=== PATIENT | male | born 2000 | race African-American/Black ===

== ENCOUNTER 2022-04-29 14:12 | Emergency (ER) | payer BC, OTHER ==
--- OUTSIDE RECORDS SUMMARY | 2022-04-29 14:15 | XMS REPORT | Continuity of Care Document ---
:2000 Author Organization [facility] Address [address] [place] [address] Care Team Providers Name Role Phone KRISTA QUINONES Primary Care Physician Unavailable ANTOINETTE CORTES Attending Clinician Unavailable Antoinette Cortes DO Attending Clinician CHIN EARL Attending Clinician Unavailable Chin Earl MD Attending Clinician EDELMIRA Attending Clinician Unavailable Maritza Howard RN Attending Clinician Unavailable Only, Ang Db Test Attending Clinician Unavailable Re Anderson Attending Clinician Zan FERNANDEZ, Davonte Attending Clinician DAVONTE ZULUAGA Attending Clinician Unavailable Doctor Unassigned, [place] Attending Clinician Unavailable RE ROMERO Attending Clinician Unavailable Ebrahim NIGHT PATROL INSPECTOR Rangopal Attending Clinician EBOSKAR RANIA Attending Clinician Unavailable Sven NIGHT PATROL INSPECTOR Starla Attending Clinician STARLA MACHUCA Attending Clinician Unavailable Therapy, Adc Covid Infusion Attending Clinician Unavailable Edenilson López MD Attending Clinician EDENILSON LÓPEZ Attending Clinician Unavailable Brooke Bernstein RN Attending Clinician Unavailable Krista Quinones DO Attending Clinician Celestino Rodriguez MD Attending Clinician Rajiv Phillips MD Attending Clinician RAJIV PHILLIPS Attending Clinician Unavailable EDELMIRA Admitting Clinician Unavailable Payers Payer Name Policy Type Policy Number Effective Date Expiration Date Rosa WALL [id number] 2020 HEALTH 00:00:00 [facility] [id number] 2021 00:00:00 Problems Condition Condition Condition Status Onset Resolution Last Treating Co mments Source Name Details Category Date Date Treatment Clinician Date Hand pain, Hand pain, Disease Active 2014-03 U nivers right right 04-07 ity of 00:00: [place] 00 [facility] Allergies, Adverse Reactions, Alerts Allergy Allergy Status Severity Reaction(s) Onset Inactive Treating Comm ents Source Name Type Date Date Clinician NO KNOWN Drug Active Univers ALLERGIE Class ity of S [facility] Social History Social Habit Start Date Stop Date Quantity Comments Source Exposure to 2022-04-11 2022-04-21 Not sure [facility] SARS-CoV-2 (event) 00:00:00 13:15:00 Medica l Branch Alcohol intake 2022-04-21 2022-04-21 0 /d [facility] 00:00:00 00:00:00 [facility] Sex Assigned At [birth year] [facility] 00:00:00 00:00:00 [facility] Smoking Status Start Date Stop Date Source Never smoked tobacco [facility] Medications Ordered Filled Start Stop Current Ordering Indication Dosage Frequency Signature Comments Components Source Medication Medication Date Date Medication? Clinician (SIG) Name Name NaCl 0.9% 2022- No 1000mL at 999 Uni vers (NS) bolus 04-21 mL/hr, ity of infusion 22:15: 22:55 1,000 mL, Kyle as 1,000 mL 00 :00 IV Medical Infusion, Branch ONCE, 1 dose, On 04/21/22 at 1615, MAXINE ondansetron 2022- No 4mg 4 mg, Slow Univers (ZOFRAN 04-21 IV Push, ity of (PF)) 21:30: 22:10 ONCE, 1 [place] injection 4 00 :00 dose, On Medi martina mg Mon Branch 04/21/22 at 1530, MAXINE NaCl 0.9% 2022- No 1000mL at 999 Uni vers (NS) bolus 1-30 01-30 mL/hr, ity of infusion 20:30: 20:28 1,000 mL, Kyle as 1,000 mL 00 :00 IV Medical Infusion, Branch ONCE, 1 dose, On 04/21/22 at 1430, MAXINE ondansetron 2022-0 Yes [id number] 4mg Take 1 U nivers 4 mg 1-30 tablet by ity of disintegrat 00:00: mouth [place] ing tablet 00 every 8 Medica l (eight) Branch hours as needed for Nausea and Vomiting (N/V). famotidine 0 Yes [id number] 20mg Take 1 U nivers 20 mg 6-14 tablet by ity of tablet 00:00: mouth 2 [place] 00 (two) Medical times Branch daily. sucralfate 0 Yes [id number] 1g Take 1 U nivers 1 gram 6-14 tablet by ity of tablet 00:00: mouth [place] 00 before Medical meals and Branch at bedtime. docusate 0 Yes [id number] 250mg Take 1 Un castro sodium 250 6-14 capsule by ity of mg capsule 00:00: mouth once [place] 00 daily as Medical needed for Branch Constipati on. ondansetron 0 Yes [id number] 4mg Take 1 Univers 4 mg 6-14 tablet by ity of disintegrat 00:00: mouth [place] ing tablet 00 every 4 Medica l (four) Branch hours as needed for Nausea and Vomiting (N/V). famotidine 2020-0 Yes [id number] 20mg Take 1 U nivers 20 mg 6-14 tablet by ity of tablet 00:00: mouth 2 [place] 00 (two) Medical times Branch daily. sucralfate 2020-0 Yes [id number] 1g Take 1 U nivers 1 gram 6-14 tablet by ity of tablet 00:00: mouth [place] 00 before Medical meals and Branch at bedtime. docusate 2020-0 Yes [id number] 250mg Take 1 Un castro sodium 250 6-14 capsule by ity of mg capsule 00:00: mouth once [place] 00 daily as Medical needed for Branch Constipati on. ondansetron 2020-0 2022- No [id number] 4mg Take 1 Univers 4 mg 6-14 01-30 tablet by ity of disintegrat 00:00: 00:[place] tablet 00 :00 every 4 Medica l (four) Branch hours as needed for Nausea and Vomiting (N/V). ondansetron Yes 4mg Take 4 mg U nivers 4 mg tablet 2-11 by mouth. ity of 00:00: [place] [facility] ondansetron Yes 4mg Take 4 mg U nivers 4 mg tablet 2-11 by mouth. ity of 00:00: [place] [facility] amitriptyli Yes [id number] 10mg Take 1 Univers ne 10 mg 1-29 tablet by ity of tablet 00:00: mouth [place] 00 every Medical evening. Branch amitriptyli Yes [id number] 10mg Take 1 Univers ne 10 mg 1-29 tablet by ity of tablet 00:00: mouth [place] 00 every Medical evening. Branch Vital Signs Vital Name Observation Time Observation Value Comments Source Systolic blood 2022-04-21 22:30:00 138 mm[Hg] Univer sity [facility] Diastolic blood 2022-04-21 22:30:00 84 [facility]Hg[facility] 2022-04-21 22:30:00 102 /min [facility] Body temperature 2022-04-21 22:30:00 36.67 Bel [facility] Respiratory rate 2022-04-21 22:30:00 16 /min [facility] Oxygen saturation in 2022-04-21 22:30:00 100 /min [facility] Arterial blood by [facility] [place] [facility] Pulse oximetry Branch Body weight 2022-04-21 19:25:00 108.863 kg [facility] Systolic blood 2021-11-13 15:20:00 125 mm[Hg] Univer sity [facility] Diastolic blood 2021-11-13 15:20:00 84 mm[Hg] Unive rsity [facility] Heart rate 2021-11-13 15:20:00 89 /min [facility] Body height 2021-11-13 15:20:00 195.6 cm [facility] Body weight 2021-11-13 15:20:00 119.704 kg [facility] BMI 2021-11-13 15:20:00 31.29 kg/m2 [facility] Procedures Procedure Date / Time Performing Clinician Source Performed MAGNESIUM 2022-04-21 19:40:00 Antoinette Cortes [facility] TROPONIN I 2022-04-21 19:40:00 Antoinette Cortes [facility] THYROID STIMULATING 2022-04-21 19:40:00 Antoinette Cortes [facility] HORMONE [facility] COMP. METABOLIC PANEL 2022-04-21 19:40:00 Antoinette Cortes [facility] ([id number]) [facility] CBC WITH DIFF 2022-04-21 19:40:00 Antoinette Cortes [facility] URINALYSIS 2022-04-21 19:40:00 Antoinette Cortes [facility] URINE DRUG (IMMUNOASSAY) 2022-04-21 19:40:00 Antoinette Cortes [facility] DRUG Medical [facility] SCREEN W/O REFLEX CONSENT/REFUSAL FOR 2022-04-21 18:52:21 Doctor Unassigned, No Un [facility] DIAGNOSIS AND TREATMENT Name Medical [place] Encounters Start End Encounter Admission Attending Care Care Encounter Source Date/Time Date/Time Type Type Clinicians Facility Department ID 2021-01-21 Emergency [facility] [id number] Univers [facility] 2022-04-21 2022-04-21 Emergency X SEBASTIAN [facility] ERT [id number] Univers 13:25:00 17:09:[address] [facility] 2022-04-21 2022-04-21 [facility] 1.2.840.114 [id number] Univers 13:25:00 17:09:00 Antoinette KOWALSKI [id number] itmary beth [facility] 4.2.7.2.686 [facility] [phone] [facility] 084 Branch 2021-11-26 2021-11-26 Outpatient R RAJAT [facility] [id number] Univers 13:00:00 13:00:00 CHIN bradford o f [facility] 2021-11-13 2021-11-13 Outpatient R RAJAT, [facility] [id number] Univers 10:20:00 10:46:15 CHIN khan [facility] 2021-11-13 2021-11-13 Outpatient R RAJAT, [facility] [id number] Univers 10:20:00 10:46:15 CHIN burgos [facility] 2021-11-13 2021-11-13 Office [facility] 1.2.840.114 [id number] Univers 10:20:00 10:46:15 Visit Chin KOWALSKI [id number] ity [facility] [id number] [place] [id number] Ok mojgannj BOB 059 [facility] 2021-10-04 2021-10-04 Outpatient HAYDERHEMANT RIVERA [facility] 935 [place] 03:23:00 03:23:00 HN 0715 da [facility] Outre h Program 2021-09-29 2021-09-29 Telephone Maritza Howard 1.2.840.114 [id number] Univers 00:00:00 00:00:00 GOODELLS [id number] it y [facility] 4.2.7.2.686 [place] as [phone] [address] 2021-09-28 2021-09-28 Laboratory Only, Ang Db Test [facility] 1.2.8 40.114 [id number] Univers 12:00:00 12:15:00 Only [place] [id number] ity of Davonte Zuluaga 4.2.7.2.686 [place] ARNEL?BLEA [phone] Ok dicmarvin KNEY [address] [place] MEDICAL OFFICE BUILDING 2021-09-28 2021-09-28 Outpatient R ZAN [facility] [id number] Univers 12:00:00 12:00:[address] [facility] 2021-09-27 2021-09-27 Outpatient R [facility] [id number] Univers 10:00:00 10:00:[address] [facility] 2021-08-30 2021-08-30 Outpatient R RAJAT, [facility] [id number] Univers 09:00:00 09:00:00 CHIN ity o f [facility] 2021-08-13 2021-08-13 Orders Doctor CAIO 1.2.840.114 [id number] Univers 00:00:00 00:00:00 Only Unassigned, SEFERINO [id number] ity of [facility] 4.2.7.2.686 [place] as [phone] [address] 2021-02-07 2021-02-07 Laboratory Only, Ang Db Test [facility] 1.2.8 40.114 [id number] Univers 09:20:37 09:35:37 Only Nick, Re HEALTH [id number] ity of [place] 4.2.7.2.686 [place] as ARNEL?BLEA [phone] [address] MEDICAL OFFICE [facility] 2021-02-07 2021-02-07 Outpatient R NICK [facility] [id number] Univers 09:15:00 09:15:[address] [facility] 2021-02-07 2021-02-07 Orders Doctor CAIO 1.2.840.114 [id number] Univers 00:00:00 00:00:00 Only Unassigned, SEFERINO [id number] ity of [facility] 4.2.7.2.686 Kyle as [phone] [address] 2021-01-11 2021-01-11 Laboratory Only, Ang Db Test [facility] 1.2.8 40.114 [id number] Univers 09:57:56 10:12:56 Only [facility] [id number] ity of [place] 4.2.7.2.686 [place] as Arnel?Blea [phone] [address] Medical Office [facility] 2021-01-11 2021-01-11 Outpatient R AMADOU [facility] [id number] Univers 10:00:00 10:00:[address] [facility] 2020-12-24 2020-12-24 Laboratory Only, Ang Db Test [facility] 1.2.8 40.114 [id number] Univers 13:01:44 13:16:44 Only Starla Machuca [id number] ity of [place] 4.2.7.2.686 Kyle as Arnel?Blea [phone] Ok david tate [address] [place] [address] Medical Office Building 2020-12-24 2020-12-24 Outpatient R SVEN [facility] [id number] Univers 13:15:00 13:15:00 STARLA ity o f [facility] 2020-11-22 2020-11-22 Nurse Therapy, Adc Covid Infusion [facility] 1.2.840.114 [id number] Univers 15:01:43 16:01:43 Visit Edenilson López 350.1.13.10 ity of [place] 4[place]7.2.[place] [id number] [place] [id number] [place] 2020-11-22 2020-11-22 Outpatient Sherrie LÓPEZ [facility] [id number] Univers 16:00:00 16:00:[address] [facility] 2020-11-22 2020-11-22 Orders Doctor CAIO 1.2.840.114 [id number] Univers 00:00:00 00:00:00 Only Unassigned, SEFERINO 350.1.13.10 ity of [facility] 4.2.7.2.686 Kyle as [phone] [facility] [address] [place] 2020-11-14 2020-11-14 Letter CAIO Bernstein 1.2.840.114 [id number] Univers 00:00:00 00:00:00 (Out) Brooke GENTILE 350.1.13.10 it y of HOSPITAL 4.2.7.2.686 [place] as [phone] [facility] [address] [place] 2020-11-14 2020-11-14 Telephone CAIO Quinones 1.2.840.114 [id number] Univers 00:00:00 00:00:00 Krista GENTILE 350.1.13.10 it y of HOSPITAL 4.2.7.2.686 [place] as [id number] [facility] [address] [place] 2020-11-13 2020-11-13 Laboratory Only, Ang Db Test [facility] 1.2.8 40.114 [id number] Univers 10:15:00 10:25:00 Only Davonte Zuluaga [facility] [id number] ity of [place] 4.2.7.2.686 Kyle as Arnel?Blea [phone] [address] Medical Office [facility] 2020-11-13 2020-11-13 Outpatient R [facility] [id number] Univers 10:20:00 10:20:00 ity of [facility] 2020-11-13 2020-11-13 Urgent Davonte Zuluaga [facility] 1.2.840.114 [id number] Univers 10:00:00 10:20:00 Care [facility] 350.1.13.10 ity of [place] 4.2.7.2.686 [place] as Arnel?Blea [phone] [address] Medical Office [facility] 2020-11-13 2020-11-13 Outpatient R [facility] [id number] Univers 10:00:00 10:00:00 ity of [facility] 2020-09-03 2020-09-03 Emergency [facility] [id number] Univers 08:57:00 11:08:00 Celestino [place] 350.1.13.10 i [place].7.2.686 [place] [id number] [address] 2020-04-13 2020-04-13 Orders Doctor KEARNEY 1.2.840.114 [id number] Univers 00:00:00 00:00:00 Only Unassigned, SEFERINO 350.1.13.10 ity of [facility] 4.2.7.2.686 Kyle as [id number] [address] 2020-03-22 2020-03-22 Orders Doctor KEARNEY 1.2.840.114 [id number] Univers 00:00:00 00:00:00 Only Unassigned, SEFERINO 350.1.13.10 ity of [facility] 4.2.7.2.686 Kyle as [id number] [address] 2020-03-07 2020-03-07 Orders Doctor KEARNEY 1.2.840.114 [id number] Univers 00:00:00 00:00:00 Only Unassigned, SEFERINO 350.1.13.10 ity of [facility] 4.2.7.2.686 Kyle as [phone] [address] 2020-02-13 2020-02-13 Orders Doctor CAIO 1.2.840.114 [id number] Univers 00:00:00 00:00:00 Only Unassigned, SEFERINO 350.1.13.10 ity of [facility] 4.2.7.2.686 Kyle as [phone] [address] 2020-02-03 2020-02-03 Office Alan [facility] [id number] [facility] 09:30:05 09:45:05 Visit Rajiv [facility] 350.1.13.10 it y of Surgical 4.2.7.2.686 Kyle as Specialti [phone] Ok david [address] [facility] 2020-02-03 2020-02-03 Outpatient R ALAN [facility] [id number] [facility] 09:30:00 09:30:00 RAJIV bradford of [facility] Results This patient has no known results.
[2022-04-29 15:13] LABS: Absolute Lymphocytes (CBC) 1.9 K/uL (0.7-4.9); Hematocrit 41.8 % (39.6-49.0); Lymphocytes % 21.8 % (15.3-44.8); MCV 85.2 fL (80-100); MPV 8.8 fL (7.6-11.3)
[2022-04-29 15:13] LABS: Urine Blood Negative (Negative); Urine Glucose Negative (Negative); Urine Protein 1+ (Negative)
--- NOTE | 2022-04-29 15:20 | RAD REPORT ---
EXAM DESCRIPTION: CTAbdomen Pelvis W Contrast - 04/29/2022 3:11 pm CLINICAL HISTORY: Abdominal pain. abdominal pain, diarrhea COMPARISON: No comparisons TECHNIQUE: Biphasic CT imaging of the abdomen and pelvis was performed with 100 ml non-ionic IV cont rast. All CT scans are performed using dose optimization technique as appropriate and may include automated exposure control or mA/KV adjustment according to patient size. FINDINGS: The lung bases are clear. The liver, spleen, pancreas, adrenal glands and kidneys are within normal limits. No bowel obstruction, free air, free fluid or abscess. The appendix is normal. No evidence of signi ficant lymphadenopathy. No suspicious bony findings. IMPRESSION: No acute intra-abdominal or pelvic finding.
--- NOTE | 2022-04-29 15:24 | RAD REPORT ---
EXAM DESCRIPTION: CT - Chest For Pe Angio - 04/29/2022 3:11 pm CLINICAL HISTORY: Chest pain. CHEST PAIN COMPARISON: No comparisons TECHNIQUE: CT angiogram of the pulmonary arteries was performed with MIP. All CT scans are performed using dose optimization technique as appropriate and may include automated exposure control or mA/KV adjustment according to patient size. FINDINGS: No evidence of pulmonary thromboembolism. No acute aortic finding demonstrated. The lungs are clear. No significant pericardial or pleural fluid. No concerning bony finding. IMPRESSION: No evidence of pulmonary thromboembolism. No acute lung findings.
[2022-04-29 15:32] LABS: Albumin 4.4 g/dL (3.4-5.0); Bilirubin Total 0.8 mg/dL (0.2-1.0); Potassium 3.3 mmol/L (3.5-5.1); Protein, Total 8.2 g/dL (6.4-8.2)
[2022-04-29] MEDS ORDERED: ONDANSETRON 4 MG/2 ML VIAL ONE (15:45)
[2022-04-29] MEDS ORDERED: Ringers Lactate 1,000 ML IV ONE (15:45)
[2022-04-29] MEDS ORDERED: HALOPERIDOL LACT 5 MG/ML INJ ONE (17:46)
--- NOTE | 2022-04-29 18:01 | ER ---
Nurse's Notes [facility] Name: Lokesh Conklin Age: 21 yrs Sex: Male : 2000 Arrival Date: 04/29/2022 Time: 14:18 Bed 25 Private MD: Lloyd Her Diagnosis: Abdominal pain, unspecified;Vomiting Presentation: 04/29 14:37 Chief complaint: Patient states: ABD pain X 8 days, lack of appetite, mucus in stool, ld1 N/V. Coronavirus screen: At this time, the client does not indicate any symptoms associated with coronavirus-19. Ebola Screen: No symptoms or risks identified at this time. Initial Sepsis Screen: Does the patient meet any 2 criteria? No. Patient's initial sepsis screen is negative. Does the patient have a suspected source of infection? No. Patient's initial sepsis screen is negative. Risk Assessment: Do you want to hurt yourself or someone else? Patient reports no desire to harm self or others. Onset of symptoms was April 29, 2022 at 14:40. 14:37 Method Of Arrival: Ambulatory ld1 14:37 Acuity: ARMAND 3 ld1 Triage Assessment: 14:40 General: Appears in no apparent distress. comfortable, Behavior is calm, cooperative, ld1 appropriate for age. Pain: Complains of pain in abdomen Pain does not radiate. Pain currently is 2 out of 10 on a pain scale. at worst was 8 out of 10 on a pain scale. Quality of pain is described as throbbing. EENT: No signs and/or symptoms were reported regarding the EENT system. Neuro: Level of Consciousness is awake, alert, obeys commands, Oriented to person, place, time, situation. Cardiovascular: Capillary refill < 3 seconds Patient's skin is warm and dry. Respiratory: Reports Airway is patent Respiratory effort is even, unlabored. GI: Abdomen is flat, non-distended, Reports lower abdominal pain, upper abdominal pain, nausea, vomiting. : No signs and/or symptoms were reported regarding the genitourinary system. Derm: No signs and/or symptoms reported regarding the dermatologic system. Musculoskeletal: No signs and/or symptoms reported regarding the musculoskeletal system. Historical: - Allergies: 14:40 No Known Allergies; ld1 - Home Meds: 14:40 None [Active]; ld1 - PMHx: 14:40 None; ld1 - PSHx: 14:40 None; ld1 - Immunization history:: Adult Immunizations up to date. - Social history:: Smoking status: Patient denies any tobacco usage or history of. Patient uses street drugs, marijuana, Patient/guardian denies using alcohol. Screenin:00 [facility] ED Fall Risk Assessment (Adult) History of falling in the last 3 months, eh3 including since admission No falls in past 3 months (0 pts) Confusion or Disorientation No (0 pts) Intoxicated or Sedated No (0 pts) Impaired Gait No (0 pts) Mobility Assist Device Used No (0 pt) Altered Elimination Yes (1 pt) Score/Fall Risk Level 0 - 2 = Low Risk. Abuse screen: Denies threats or abuse. Denies injuries from another. Nutritional screening: No deficits noted. Tuberculosis screening: No symptoms or risk factors identified. Assessment: 15:00 General: Appears in no apparent distress. uncomfortable, Behavior is calm, cooperative, eh3 appropriate for age. Pain: Complains of pain in abdomen. Neuro: Level of Consciousness is awake, alert, obeys commands, Oriented to person, place, time, situation. Cardiovascular: Capillary refill < 3 seconds Patient's skin is warm and dry. Respiratory: Airway is patent Respiratory effort is even, unlabored, Respiratory pattern is regular, symmetrical. GI: Abdomen is round non-distended, Bowel sounds present X 4 quads. Abd is soft X 4 quads Abdomen is tender to palpation X 4 quads. : No signs and/or symptoms were reported regarding the genitourinary system. EENT: No signs and/or symptoms were reported regarding the EENT system. Derm: No signs and/or symptoms reported regarding the dermatologic system. Skin is pink, warm \T\ dry. Musculoskeletal: Circulation, motion, and sensation intact. Range of motion: intact in all extremities. 15:40 Reassessment: Patient appears in no apparent distress at this time. Patient and/or eh3 family updated on plan of care and expected duration. Pain level reassessed. Patient is alert, oriented x 3, equal unlabored respirations, skin warm/dry/pink. 16:40 Reassessment: Patient appears in no apparent distress at this time. Patient and/or eh3 family updated on plan of care and expected duration. Pain level reassessed. Patient is alert, oriented x 3, equal unlabored respirations, skin warm/dry/pink. 17:55 Reassessment: After Haldol administration, pt is anxious and restless. Provider eh3 notified. 17:55 Reassessment: Provider at bedside. eh3 18:11 Reassessment: Patient appears in no apparent distress at this time. Patient is alert, eh3 oriented x 3, equal unlabored respirations, skin warm/dry/pink. Vital Signs: 14:37 Pulse 118; Resp 18; Temp 98.6(O); Pulse Ox 99% ; Weight 108.86 kg; Height 6 ft. 5 in. ld1 (195.58 cm); Pain 2/10; 14:40 BP 134 / 118; ld1 15:40 BP 120 / 81; Pulse 97; Resp 18; Temp 99.3(O); Pulse Ox 100% on R/A; eh3 16:40 BP 121 / 80; Pulse 80; Resp 18; Pulse Ox 100% on R/A; eh3 14:37 Body Mass Index 28.46 (108.86 kg, 195.58 cm) ld1 ED Course: 14:18 Patient arrived in ED. am2 14:19 Lloyd Her DO is Private Physician. am2 14:27 Donny Fountain PA is PHCP. jmm 14:27 Jose Antonio Walker DO is Attending Physician. [facility] 14:40 Triage completed. ld1 14:40 Arm band placed on right wrist. ld1 14:57 Reyna Grijalva, RN is Primary Nurse. ss 15:00 Patient has correct armband on for positive identification. Bed in low position. Call eh3 light in reach. Side rails up X2. Adult w/ patient. Client placed on continuous cardiac and pulse oximetry monitoring. NIBP monitoring applied. Door closed. Noise minimized. Lights dimmed. Warm blanket given. 15:00 Inserted saline lock: 20 gauge in left antecubital area, using aseptic technique. eh3 ,using aseptic technique. Inserted by SUKHJINDER Blood collected. 15:13 CT Abd/Pelvis - IV Contrast Only In Process Unspecified. EDMS 15:13 CT Chest For PE Angio In Process Unspecified. EDMS 17:52 No provider procedures requiring assistance completed. IV discontinued, intact, eh3 bleeding controlled, No redness/swelling at site. Pressure dressing applied. Administered Medications: 15:45 Drug: Zofran (Ondansetron) 4 mg Route: IVP; Site: left antecubital; 3 16:15 Follow up: Response: Nausea is decreased 3 15:45 Drug: Lactated Ringers Solution 1000 ml Route: IV; Rate: 1000 bolus; Site: left eh3 antecubital; 17:45 Follow up: IV Status: Completed infusion; IV Intake: 1000ml 3 17:45 Drug: HALdol (haloperidol) 1 mg Route: IVP; Site: left antecubital; 3 18:08 Follow up: Response: Pain is decreased 3 18:02 CANCELLED (Duplicate Order): diphenhydrAMINE 12.5 mg IVP once [facility] 18:09 Drug: diphenhydrAMINE 25 mg Route: PO; 3 18:09 Follow up: Response: Medication administered at discharge. 3 Medication: 17:53 VIS not applicable for this client. 3 Intake: 17:45 IV: 1000ml; Total: 1000ml. 3 Outcome: 18:01 Discharge ordered by . [facility] 18:11 Discharged to home ambulatory, with family. 3 18:11 Condition: stable 18:11 Discharge instructions given to patient, family, Instructed on discharge instructions, follow up and referral plans. medication usage, Demonstrated understanding of instructions, follow-up care, medications, Prescriptions given X 1. 18:12 Patient left the ED. 3 Signatures: Dispatcher [employer] EDMS Donny Fountain PA PA jmm Smirch, Shelby, RN RN ss Moreno, Amanda am2 Dibbern, Lauren, RN RN ld1 Dunia Bergman RN RN 3 Corrections: (The following items were deleted from the chart) 18:10 18:09 Reassessment: After Haldol administration, pt is anxious and restless. Provider 3 notified 3
--- NOTE | 2022-04-29 18:02 | EDPHYS ---
Physician Documentation [facility] Name: Lokesh Conklin Age: 21 yrs Sex: Male : 2000 Arrival Date: 04/29/2022 Time: 14:18 Bed 25 Private MD: Lloyd Her ED Physician Jose Antonio Walker HPI: 04/29 17:58 This 21 yrs old Black Male presents to ER via Ambulatory with complaints of Abdominal jmm Pain, Nausea/Vomiting. 17:58 The patient presents with abdominal pain. Onset: The symptoms/episode began/occurred jmm gradually, 8 day(s) ago. Associated signs and symptoms: Pertinent positives: nausea and vomiting. Is a 21-year-old male with no chronic medical conditions the presents emerged part with complaints of abdominal pain nausea and vomiting approximately 8 days ago. Was prescribed Zofran without any relief. . Historical: - Allergies: 14:40 No Known Allergies; ld1 - Home Meds: 14:40 None [Active]; ld1 - PMHx: 14:40 None; ld1 - PSHx: 14:40 None; ld1 - Immunization history:: Adult Immunizations up to date. - Social history:: Smoking status: Patient denies any tobacco usage or history of. Patient uses street drugs, marijuana, Patient/guardian denies using alcohol. ROS: 17:58 Constitutional: Negative for fever, chills, and weight loss, Cardiovascular: Negative jmm for chest pain, palpitations, and edema, Respiratory: Negative for shortness of breath, cough, wheezing, and pleuritic chest pain. 17:58 Abdomen/GI: Positive for abdominal pain, nausea and vomiting. 17:58 All other systems are negative. Exam: 17:58 Constitutional: This is a well developed, well nourished patient who is awake, alert, jmm and in no acute distress. Head/Face: atraumatic. Eyes: EOMI, no conjunctival erythema appreciated ENT: Moist Mucus Membranes Neck: Trachea midline, Supple Chest/axilla: Normal chest wall appearance and motion. Cardiovascular: Regular rate and rhythm. No edema appreciated Respiratory: Normal respirations, no respiratory distress appreciated 17:58 Back: Normal ROM Skin: General appearance color normal MS/ Extremity: Moves all extremities, no obvious deformities appreciated, no edema noted to the lower extremities Neuro: Awake and alert Psych: Behavior is normal, Mood is normal, Patient is cooperative and pleasant 17:58 Abdomen/GI: Inspection: abdomen appears normal, Bowel sounds: normal, Palpation: soft, mild abdominal tenderness, in all quadrants. Vital Signs: 14:37 Pulse 118; Resp 18; Temp 98.6(O); Pulse Ox 99% ; Weight 108.86 kg; Height 6 ft. 5 in. ld1 (195.58 cm); Pain 2/10; 14:40 BP 134 / 118; ld1 15:40 BP 120 / 81; Pulse 97; Resp 18; Temp 99.3(O); Pulse Ox 100% on R/A; eh3 16:40 BP 121 / 80; Pulse 80; Resp 18; Pulse Ox 100% on R/A; eh3 14:37 Body Mass Index 28.46 (108.86 kg, 195.58 cm) ld1 MDM: 14:44 Patient medically screened. [facility] 17:59 Data reviewed: vital signs, nurses notes. I considered the following discharge [facility] prescriptions or medication management in the emergency department Medications were administered in the Emergency Department. See MAR. Counseling: I had a detailed discussion with the patient and/or guardian regarding: the historical points, exam findings, and any diagnostic results supporting the discharge/admit diagnosis, lab results, radiology results, the need for outpatient follow up, to return to the emergency department if symptoms worsen or persist or if there are any questions or concerns that arise at home. ED course: Patient is alert nontoxic in appearance in the ED. Patient states feeling much better. Patient advised follow-up PCP and otherwise given strict return precautions. Patient does have a follow-up appointment with gastroenterology this . Patient otherwise given strict return precautions. Patient understood agrees plan of care.. 04/29 14:40 Order name: CBC with Diff; Complete Time: 15:22 [facility] 04/29 14:40 Order name: CMP; Complete Time: 15:32 [facility] 04/29 14:40 Order name: Lipase; Complete Time: 15:32 [facility] 04/29 14:40 Order name: CT Abd/Pelvis - IV Contrast Only; Complete Time: 15:22 [facility] 04/29 14:45 Order name: Troponin High Sensitivity; Complete Time: 16:17 [facility] 04/29 15:13 Order name: Urine Dipstick-Ancillary; Complete Time: 15:22 [facility] 04/29 14:40 Order name: IV Saline Lock; Complete Time: 15:40 [facility] 04/29 14:40 Order name: Labs collected and sent; Complete Time: 15:40 [facility] 04/29 14:45 Order name: CT Chest For PE Angio; Complete Time: 15:26 [facility] 04/29 14:40 Order name: Urine Dipstick-Ancillary (obtain specimen); Complete Time: 17:33 [facility] 04/29 14:45 Order name: EKG - Nurse/Tech; Complete Time: 15:34 [facility] Administered Medications: 15:45 Drug: Zofran (Ondansetron) 4 mg Route: IVP; Site: left antecubital; 3 16:15 Follow up: Response: Nausea is decreased [facility] 15:45 Drug: Lactated Ringers Solution 1000 ml Route: IV; Rate: 1000 bolus; Site: left [facility] antecubital; 17:45 Follow up: IV Status: Completed infusion; IV Intake: 1000ml [facility] 17:45 Drug: HALdol (haloperidol) 1 mg Route: IVP; Site: left antecubital; 3 18:08 Follow up: Response: Pain is decreased [facility] 18:02 CANCELLED (Duplicate Order): diphenhydrAMINE 12.5 mg IVP once [facility] 18:09 Drug: diphenhydrAMINE 25 mg Route: PO; 3 18:09 Follow up: Response: Medication administered at discharge. 3 Disposition: 18:02 Co-signature as Attending Physician, Jose Antonio HAIRSTON was immediately available on-site ms3 in the Emergency Department for consultation in the care of the patient. Disposition Summary: 04/29/22 18:01 Discharge Ordered Location: Home jm Condition: Stable jmm Diagnosis - Abdominal pain, unspecified jmm - Vomiting jmm Followup: jmm - With: Private Physician - When: 2 - 3 days - Reason: Recheck today's complaints, Continuance of care, Re-evaluation by your physician Discharge Instructions: - Discharge Summary Sheet jmm - Abdominal Pain, Adult jmm - Vomiting, Adult jmm - Cannabinoid Hyperemesis Syndrome jmm Forms: - Medication Reconciliation Form jmm - Thank You Letter jmm - Antibiotic Education jmm - Prescription Opioid Use jmm Prescriptions: - promethazine 25 mg Oral Tablet - take 1 tablet by ORAL route every 6 hours As needed; 20 tablet; Refills: 0, andrem Product Selection Permitted Signatures: Dispatcher [employer] Donny Brice PA PA jmm Sims, Marcus, DO DO ms3 Wanda Thomas, RN RN ld1 Dunia Bergman RN RN eh3 Corrections: (The following items were deleted from the chart) 18:02 18:01 diphenhydrAMINE 12.5 mg IVP once ordered. jarrett farias
[2022-04-29] MEDS ORDERED: DIPHENHYDRAMINE 25 MG TAB/CAP ONE (18:09)
[2022-04-29 18:24] VITALS: TEMP 99.3; O2SAT 100
[2022-04-29 18:25] VITALS: BP 121/80
== END 2022-04-29 18:12 | disposition home or self-care (01) ==
LOC: ER 14:12
DX: R10.9 Unspecified abdominal pain (principal); R11.2 Nausea with vomiting, unspecified
CPT/HCPCS: 85025; 36415; 81003; 84484; 83690; 80053; 71275; 74177; Q9967; J1630; J7120; J2405; 93005